=== PATIENT | male | born 1975 | race Caucasian/White ===

== ENCOUNTER → 2017-09-23 | Outpatient (CLI) | payer BC, OTHER ==
[~2017-09-23] VITALS: Ht 182.9 cm; Wt 149.7 kg
[~2017-09-23] MED LIST: ZANTAC 150MG T150 MG PO
--- NOTE | ~2017-09-23 | O ---
[facility] [place] [address] OPERATIVE REPORT Name: PUSHPA FINN [facility]: [facility] [id number] Admission: 09/23/17 Attend Phys: Victoriano Galarza MD, Discharge: Date of : 71 Report #: [id number] THIS REPORT FOR: //name// CC: Victoriano Schroedermons DATE OF SERVICE: 09/23/2017 PREOPERATIVE DIAGNOSES: 1. Morbid obesity with a BMI of 48.47. 2. Laparoscopic band surgery status. 3. Intermittent dysphagia. 4. Gastroesophageal reflux disease. POSTOPERATIVE DIAGNOSES: 1. Morbid obesity with a BMI of 48.47. 2. Laparoscopic band surgery status. 3. Intermittent dysphagia. 4. Gastroesophageal reflux disease. 5. Malpositioned and slipping lap band. 6. Small hiatal hernia. PROCEDURE PERFORMED: Thorough esophagogastroduodenoscopy (EGD). SURGEON: Victoriano Galarza M.D. SET UP MECHANIC AUTOMATIC LINE: None. ANESTHESIA: Monitored anesthesia care. ESTIMATED BLOOD LOSS: None. COMPLICATIONS: None. SPECIMENS: None. INDICATIONS: The patient is a 42-year-old obese male who underwent placement of a lap band approximately 5 years ago with initial weight loss, but significant weight regain and worsening dysphagia as of late. The patient has had intolerance to p.o. intake and still maintains a BMI of nearly 50 while carrying numerous medical comorbid conditions. As such, indication was for thorough evaluation with an EGD today with intraprocedural findings of the lap band residing at what appears to be the gastroesophageal juncture with a small hiatal hernia and no overt gastric pouch superior to the band. When allowing the patient to lighten from anesthesia. , there was overt slipping of the lap band seen as well. [facility] [address] [place] [address] OPERATIVE REPORT Name: PUSHPA FINN Room #: REG [facility].#: [id number] Admission: 09/23/17 Attend Phys: Victoriano Galarza MD, Discharge: Date of : 71 Report #: [id number] DESCRIPTION OF PROCEDURE: After explaining the risks, benefits, alternatives of the procedure with the patient in detail and obtaining consent, the patient was brought to the endoscopy suite supine on his hospital bed. After conducting a thorough timeout procedure verifying correct patient and procedure, the patient was given monitored anesthesia care. Once adequate anesthesia was obtained, he was positioned in the left lateral decubitus position and the Vtrimn upper endoscope was used to intubate the oropharynx. This was traversed down the esophagus to the GE juncture where I was able to intubate the gastric lumen with some difficulty. The pylorus was identified and intubated and the scope was advanced to the second portion of the duodenum. Slow and careful withdrawal of the EGD scope showed no evidence of duodenitis, gastritis, esophagitis, mass lesions or ulcerations. Retroflexion view of the scope within the gastric lumen did show extrinsic compression of the lap band, which appeared to reside directly at the gastroesophageal juncture with presence of a small hiatal hernia and no significant gastric pouch superior to the band itself. The patient was allowed to lighten from anesthesia slightly and upon repeated abdominal contractions, the band itself was seen to have approximately 2-3 cm of craniocaudal mobility consistent with a slipping lap band and malpositioning. The scope was straightened out within the gastric lumen where the stomach was fully desufflated and the scope was slowly withdrawn, evaluating the esophageal tissues showing no evidence of Brady's changes or esophagitis. The scope was then passed off the field completing the procedure. At the end of the procedure, all instruments, needle and sponge counts were correct. The patient tolerated the procedure without incident, was awakened in the endoscopy Suite and transitioned to the Recovery Room in stable condition with no apparent complications. <ELECTRONICALLY SIGNED> By: Victoriano Galarza MD, FACS 09/25/17 [id number] Victoriano Galarza MD, FACS /nt
== END | disposition home or self-care (01) ==
LOC: GI 06:01
DX: K95.09 Other complications of gastric band procedure (principal); K44.9 Diaphragmatic hernia without obstruction or gangrene; K21.9 Gastro-esophageal reflux disease without esophagitis; R13.19 Other dysphagia; G47.33 Obstructive sleep apnea (adult) (pediatric); F17.210 Nicotine dependence, cigarettes, uncomplicated; E66.01 Morbid (severe) obesity due to excess calories; Z68.42 Body mass index [BMI] 45.0-49.9, adult; Z98.84 Bariatric surgery status; Z90.49 Acquired absence of other specified parts of digestive tract; Z98.890 Other specified postprocedural states; Z79.899 Other long term (current) drug therapy
CPT/HCPCS: 62110; 62900